=== PATIENT | female | born 2005 | race Caucasian/White ===

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

== ENCOUNTER 2023-02-07 07:17 | Outpatient (RCR) | payer OTHER, SELFPAY | END 2023-02-25 23:59 | disposition home or self-care (01) | LOC: SPT 07:17 | PROVIDERS: Visit Provider Family Medicine | DX: S83.005D Unspecified dislocation of left patella, subsequent encounter (principal); X58.XXXD Exposure to other specified factors, subsequent encounter | CPT/HCPCS: 97110; 97161 ==

== ENCOUNTER 2023-07-22 21:04 | Emergency (ER) | payer OTHER, SELFPAY ==
[2023-07-22 21:23] VITALS: BP 123/83; PULSE 81; RESP 18; TEMP 36.7; O2SAT 97; BMI 22.6
--- NOTE | 2023-07-22 21:44 | W.ED.EXTPRO ---
HPI - Extremity Problem General: Chief complaint: Extremity Injury, Upper Stated complaint: Left hand finger lac Time Seen by Provider: 07/22/23 21:09 Source: patient Mode of arrival: ambulatory Limitations: no limitations History of Present Illness: 17-year-old female states she is trying to open an [employer] package and lacerated her left index finger she does have a superficial laceration to the distal portion of the finger. States this happened just prior to arrival she is up-to-date on her tetanus denies any other injuries Associated symptoms: Deny chest pain, fever(s) or rash Review of Systems Const: Denies: fever(s), chills, body aches or change in appetite ENMT: Denies: throat pain or dental pain Card: Denies: chest pain Resp: Denies: dyspnea GI: Denies: abdominal pain, nausea, vomiting or diarrhea Musc: Denies: neck pain or back pain Skin/Breast: Denies: rash Neuro: Denies: headache(s) PFS ED PFSH: Medical History (Updated 07/22/23 @ 21:46 by Claudio Keith MD) No pertinent past medical history Surgical History No pertinent past surgical history Social History Smoking and tobacco/nicotine status: never used tobacco/nicotine Second hand smoke exposure: No Alcohol intake: never Substance/Drug Use: never Physical Exam Const: COMMON NORMALS: no acute distress, patient oriented x3 and healthy appearing HENMT: COMMON NORMALS: normocephalic and atraumatic HEAD & SCALP: normocephalic and atraumatic Neck/C-Spine: COMMON NORMALS: full ROM and supple Chest: COMMONS NORMALS: normal inspection of the chest Resp: COMMON NORMALS: normal respiratory effort Extremity: COMMON NORMALS: full ROM NARRATIVE EXTREMITY EXAM: 1 cm laceration to left distal index finger Neuro: COMMON NORMALS: patient oriented x3, moves all extremities and no focal motor deficits Psych: COMMON NORMALS: mental status grossly normal, Normal thought process present and cooperative THOUGHT PROCESS: Normal thought process present Skin: COMMON NORMALS: no rashes or lesions noted and no wounds GENERAL SKIN EXAM: no rashes or lesions noted Procedures Laceration Laceration 1: Site: hand Side (If applicable): left Size (cm): 1 Description: linear Depth: simple, single layer Pre-repair: wound explored and irrigated extensively Skin layer closed with: other (Dermabond) Course Vital Signs: Vital signs: Vital Signs Temperature 98.1 F 07/22/23 21:23 Pulse Rate 81 07/22/23 21:23 Respiratory Rate 18 07/22/23 21:23 Blood Pressure 123/83 07/22/23 21:23 Pulse Oximetry 97 07/22/23 21:23 Oxygen Delivery Me thod Room Air 07/22/23 21:23 MDM - Extremity (Nontraumatic) Medical Decision Making Patient presents here with a laceration to index finger wound was repaired Dermabond patient stable for discharge No radiology studies performed this visit Discharge Plan Discharge Patient Disposition: Home Clinical Impression: Laceration Condition: Stable Prescriptions: No Action cephalexin 500 mg capsule 500 mg PO TID 7 Days Qty: 21 0RF mupirocin 2 % ointment 1 applic topical BID 7 Days Qty: 22 0RF Zyrtec 10 mg Tablet 10 mg PO BEDTIME Discharge Orders: Discharge ED (Routine); Ordered 07/22/23 Ordered By: Claudio Keith Discharge Diet: Advance as tolerated Discharge Activity: Resume usual activity Patient Instructions: Laceration (ED), Skin Adhesive Care (ED) Coding Level of Care Code ED Sand Technologist for Aidee Malhotra
[2023-07-22 21:57] VITALS: BP 131/82; PULSE 78; RESP 14; O2SAT 97
== END 2023-07-22 21:59 | disposition home or self-care (01) ==
PROVIDERS: Emergency Provider Emergency Medicine
DX: S61.211A Laceration without foreign body of left index finger without damage to nail, initial encounter (principal); W26.9XXA Contact with unspecified sharp object(s), initial encounter
CPT/HCPCS: 12001; 99282

== ENCOUNTER 2023-08-15 10:53 | Outpatient (RCR) | payer OTHER, SELFPAY | END 2023-08-28 23:59 | disposition home or self-care (01) | LOC: SPT 10:53 | PROVIDERS: PCP Orthopaedic Surgery; Visit Provider Orthopaedic Surgery | DX: Z98.890 Other specified postprocedural states (principal) | CPT/HCPCS: 97110; 97161 ==

== ENCOUNTER 2023-08-29 06:00 | Outpatient (RCR) | payer OTHER, SELFPAY | END 2023-09-28 23:59 | disposition home or self-care (01) | LOC: SPT 06:00 | PROVIDERS: PCP Orthopaedic Surgery; Visit Provider Orthopaedic Surgery | DX: Z98.890 Other specified postprocedural states (principal) | CPT/HCPCS: 97110 ==